=== PATIENT | female | born 1960 | race American Indian/Alaskan Native ===

== ENCOUNTER 2016-07-09 16:21 | Emergency (ER) | payer MEDICARE ==
--- NOTE | 2016-07-09 16:59 | Emergency Department Report ---
Chief Complaint: Nosebleed Stated Complaint: NOSE BLEEDS/CHILLS/LIGHTHEADED Time Seen by Provider: 07/09/16 16:54 - HPI History of Present Illness: 55-year-old -[place] female with a past medical history of hypertension comes in for having nosebleeds has been bleeding on and off for the past 8 days. Patient admits to dizziness and having a cough. She states she sees has chills at night as well as having back pain. - Exam Vital Signs: Vital Signs 07/09/16 16:37 Temperature 97.8 F Pulse Rate 94 H Respiratory 18 Rate Blood Pressure 123/80 O2 Sat by Pulse 100 Oximetry Physical Exam: She is alert and oriented 3 cardiovascular mildly tachycardic respiratory clear to auscultation bilaterally abdomen soft nontender nondistended bowel sounds appreciated. MSE screening note: Focused history and physical exam performed. Due to findings the following was ordered: CBC BMP urinalysis ordered patient be evaluated in the back. ED Disposition for MSE Condition: Stable
[2016-07-09 17:48] LABS: Basophils % (Auto) 0.6 % (0.0-1.8); Eosinophils % (Auto) 3.5 % (0.0-4.3); Hematocrit 35.8 % (30.3-42.9); Hemoglobin 11.9 gm/dl (10.1-14.3); Mean Corpuscular HGB Conc 33 % (30-34); Mean Corpuscular Hemoglobin 32 pg (28-32); Mean Corpuscular Volume 97 fl (79-97); Platelet Count 239 K/mm3 (140-440); Red Blood Count 3.68 M/mm3 (3.65-5.03); Red Cell Distribution Width 12.8 % (13.2-15.2); White Blood Count 5.2 K/mm3 (4.5-11.0)
[2016-07-09 17:56] LABS: Anion Gap 16 mmol/L; Blood Urea Nitrogen 9 mg/dL (7-17); Calcium 9.7 mg/dL (8.4-10.2); Carbon Dioxide 25 mmol/L (22-30); Chloride 98.6 mmol/L (98-107); Glucose 89 mg/dL (65-100); Potassium 4.2 mmol/L (3.6-5.0); Sodium 135 mmol/L (137-145)
[2016-07-09 19:26] LABS: Bacteria,Urine 1+ /HPF (Negative); Bilirubin,Urine NEG (Negative); Blood,Urine NEG (Negative); Ketones,Urine NEG (Negative); Leukocyte Esterase,Urine TR (Negative); Nitrite,Urine NEG (Negative); Protein,Urine <15 mg/dL mg/dL (Negative); Urobilinogen,Urine < 2.0 mg/dL (<2.0)
[2016-07-09 19:27] LABS: RBC,Urine < 1.0 /HPF (0.0-6.0)
[2016-07-10 00:19] VITALS: BP 120/82
--- NOTE | 2016-07-10 00:28 | Emergency Department Report ---
ED General Adult HPI - General Chief complaint: Nosebleed Stated complaint: NOSE BLEEDS/CHILLS/LIGHTHEADED Time Seen by Provider: 07/09/16 16:54 Source: patient, RN notes reviewed Mode of arrival: Ambulatory Limitations: No Limitations - History of Present Illness Initial comments: This is a 58-year-old female. She is previously unknown to me. She has a primary care doctor but can't remember their name. She is a past medical history of hypertension and chronic arthritic back pain. She presents to the ER with resolved nasal bleeding. Nasal bleeding has been going on and off for about a week. Typically bleeds in the right nostril. There is no trauma. No nasal picking. No cocaine use. Patient reports that the nasal bleeding is very distressing, and when happens she feels like her heart starts to be rapidly, and she starts to feel lightheaded. She has no chest pain, she has had no loss of consciousness. There is no leg pain. There is no leg swelling. No recent trips greater than 4 hours. No recent hospital admissions. There is no loss of consciousness, there is no ataxia. There is no chest pain. The patient reports an incidental mechanical fall last week, and landed on her back. There is no bladder or bowel retention or incontinence. There is no saddle anesthesia. -: Gradual Severity scale (0 -10): 8 Consistency: intermittent Improves with: none Worsens with: none Associated Symptoms: cough, loss of appetite - Related Data Home Medications Medication Instructions Recorded Confirmed Last Taken Atenolol [Tenormin] 50 mg PO DAILY 09/28/13 09/28/13 09/28/13 09:00 HYDROcodone/APAP 5-325 [[place] 1 each PO Q6HR PRN 09/28/13 09/28/13 Unknown 5/325 mg] Hydroxychloroquine [Plaquenil] 200 mg PO QDAY 09/28/13 09/28/13 Unknown Previous Rx's Medication Instructions Recorded Last Taken Type Ibuprofen [Motrin 800 MG tab] 800 mg PO Q8H #14 tablet 09/28/13 Unknown Rx Methocarbamol [Robaxin] 750 mg PO Q8H PRN #14 tablet 09/29/13 Unknown Rx oxyCODONE /ACETAMINOPHEN [Percocet 1 tab PO Q6HR PRN #10 tablet 09/29/13 Unknown Rx 5/325 mg] Fluticasone [Flonase] 1 spray NS QDAY #1 bottle 07/10/16 Unknown Rx Oxymetazoline 0.05% [Afrin] 1 spray NS BID #1 bottle 07/10/16 Unknown Rx Allergies Allergy/AdvReac Type Severity Reaction Status Date / Time No Known Allergies Allergy Unverified 09/28/13 20:26 ED Review of Systems ROS: Stated complaint: NOSE BLEEDS/CHILLS/LIGHTHEADED Other details as noted in HPI Constitutional: denies: fever Eyes: denies: vision change ENT: throat pain, epistaxis, congestion Respiratory: see HPI Cardiovascular: as per HPI Gastrointestinal: denies: vomiting Genitourinary: denies: dysuria Musculoskeletal: back pain, arthralgia Skin: as per HPI Neurological: headache Psychiatric: anxiety ED Past Medical Hx - Past Medical History Hx Hypertension: Yes - Surgical History Hx Appendectomy: Yes - Social History Smoking Status: Current Every Day Smoker Substance Use Type: None - Medications Home Medications: Home Medications Medication Instructions Recorded Confirmed Last Taken Type Atenolol [Tenormin] 50 mg PO DAILY 09/28/13 09/28/13 09/28/13 09:00 History HYDROcodone/APAP 5-325 [[place] 1 each PO Q6HR PRN 09/28/13 09/28/13 Unknown History 5/325 mg] Hydroxychloroquine [Plaquenil] 200 mg PO QDAY 09/28/13 09/28/13 Unknown History Ibuprofen [Motrin 800 MG tab] 800 mg PO Q8H #14 tablet 09/28/13 Unknown Rx Methocarbamol [Robaxin] 750 mg PO Q8H PRN #14 tablet 09/29/13 Unknown Rx oxyCODONE /ACETAMINOPHEN [Percocet 1 tab PO Q6HR PRN #10 tablet 09/29/13 Unknown Rx 5/325 mg] Fluticasone [Flonase] 1 spray NS QDAY #1 bottle 07/10/16 Unknown Rx Oxymetazoline 0.05% [Afrin] 1 spray NS BID #1 bottle 07/10/16 Unknown Rx ED Physical Exam - General Limitations: No Limitations General appearance: alert, in no apparent distress - Head Head exam: Present: atraumatic, normocephalic - Eye Eye exam: Present: normal appearance, PERRL, EOMI, other (social acuity intact to color perception, finger counting, rating at a close distance. No obvious visual field cuts deficits.). Absent: nystagmus - ENT ENT exam: Present: normal exam, normal orophraynx, mucous membranes moist, TM's normal bilaterally, normal external ear exam, other (no bleeding is noted in within the nostrils) - Neck Neck exam: Present: normal inspection, full ROM. Absent: tenderness, meningismus - Respiratory Respiratory exam: Present: normal lung sounds bilaterally. Absent: respiratory distress, wheezes, rales, rhonchi, stridor, decreased breath sounds - Cardiovascular Cardiovascular Exam: Present: regular rate, normal rhythm, normal heart sounds. Absent: bradycardia, tachycardia, irregular rhythm, systolic murmur, diastolic murmur, rubs, gallop - GI/Abdominal GI/Abdominal exam: Present: soft, normal bowel sounds. Absent: distended, tenderness, guarding, rebound, rigid, pulsatile mass - Extremities Exam Extremities exam: Present: normal inspection, full ROM, normal capillary refill. Absent: tenderness, pedal edema, joint swelling, calf tenderness - Back Exam Back exam: Present: normal inspection, full ROM, paraspinal tenderness. Absent : tenderness, CVA tenderness (R), CVA tenderness (L), muscle spasm, vertebral tenderness - Neurological Exam Neurological exam: Present: alert, oriented X3, normal gait (Extraocular movements intact. Tongue midline. No facial droop. Facial sensation intact to light touch in the V1, V2, V3 distribution bilaterally. 5 and 5 strength in 4 extremities.. Sensation is intact to light touch in 4 extremities.), other ( there is no past-pointing. Normal [id number]. Normal gait. Normal tandem gait). Absent: motor sensory deficit - Psychiatric Psychiatric exam: Present: normal affect, normal mood - Skin Skin exam: Present: warm, dry, intact, normal color. Absent: rash ED Course Vital Signs 07/09/16 07/10/16 16:37 00:18 Temperature 97.8 F 97.9 F Pulse Rate 94 H 88 Respiratory 18 18 Rate Blood Pressure 123/80 Blood Pressure 120/82 [Left] O2 Sat by Pulse 100 98 Oximetry - Reevaluation(s) Reevaluation #1: 07/10/16 00:52 Differential diagnosis: Viral syndrome, dehydration, intermittent epistaxis, bronchitis, pneumonia, mechanical back pain Assessment and plan: 55-year-old female with multiple complaints, none of which appear to be emergent or urgent. She has a GCS of 15, with an NIH score of 0, walks with a steady gait, no cerebellar signs. No active nasal bleeding at this time, no pulmonary embolus or DVT risk factors, she is low risk by well's criteria. Her EKG is morphologically unremarkable, laboratory studies are also unremarkable. I give the patient to tongue depressor bleeds taped together, and instructed her on how to care for her nasal bleed if it returned. The patient does report a history of nasal bleeding in the past which was treated at [facility]. She can follow-up with an outpatient primary care doctor and machine deicer element winder. She will be discharged at this time. ED Medical Decision Making - Lab Data Result diagrams: 07/09/16 17:12 07/09/16 17:12 Vital Signs 07/09/16 07/10/16 16:37 00:18 Temperature 97.8 F 97.9 F Pulse Rate 94 H 88 Respiratory 18 18 Rate Blood Pressure 123/80 Blood Pressure 120/82 [Left] O2 Sat by Pulse 100 98 Oximetry Lab Results 07/09/16 07/09/16 07/09/16 Range/Units 17:12 17:12 18:53 WBC 5.2 (4.5-11.0) K/mm3 RBC 3.68 (3.65-5.03) M/mm3 Hgb 11.9 (10.1-14.3) gm/dl Hct 35.8 (30.3-42.9) % MCV 97 (79-97) fl MCH 32 (28-32) pg MCHC 33 (30-34) % RDW 12.8 L (13.2-15.2) % Plt Count 239 (140-440) K/mm3 Lymph % (Auto) 37.0 H (13.4-35.0) % [place] % (Auto) 10.2 H (0.0-7.3) % Eos % (Auto) 3.5 (0.0-4.3) % Baso % (Auto) 0.6 (0.0-1.8) % Lymph # 1.9 (1.2-5.4) K/mm3 Garvin # 0.5 (0.0-0.8) K/mm3 Eos # 0.2 (0.0-0.4) K/mm3 Baso # 0.0 (0.0-0.1) K/mm3 Seg Neutrophils % 48.7 (40.0-70.0) % Seg Neutrophils # 2.5 (1.8-7.7) K/mm3 Sodium 135 L (137-145) mmol/L Potassium 4.2 (3.6-5.0) mmol/L Chloride 98.6 (98-107) mmol/L Carbon Dioxide 25 (22-30) mmol/L Anion Gap 16 mmol/L BUN 9 (7-17) mg/dL Creatinine 0.6 L (0.7-1.2) mg/dL Estimated GFR > 60 ml/min BUN/Creatinine Ratio 15.00 % Glucose 89 (65-100) mg/dL Calcium 9.7 (8.4-10.2) mg/dL Urine Color Yellow (Yellow) Urine Turbidity Clear (Clear) Urine pH 6.0 (5.0-7.0) Ur Specific [place] 1.005 (1.003-1.030) Urine Protein <15 mg/dl (Negative) mg/dL Urine Glucose (UA) Neg (Negative) mg/dL Urine Ketones Neg (Negative) mg/dL Urine Blood Neg (Negative) Urine Nitrite Neg (Negative) Urine Bilirubin Neg (Negative) Urine Urobilinogen < 2.0 (<2.0) mg/dL Ur Leukocyte Esterase Tr (Negative) Urine WBC (Auto) 1.0 (0.0-6.0) /HPF Urine RBC (Auto) < 1.0 (0.0-6.0) /HPF U Epithel Cells (Auto) 1.0 (0-13.0) /HPF Urine Bacteria (Auto) 1+ (Negative) /HPF - EKG Data -: EKG Interpreted by Me EKG shows normal: sinus rhythm, axis, QRS complexes, ST-T waves - EKG Data When compared to previous EKG there are: previous EKG unavailable 07/10/16 00:54 Normal sinus, 86 bpm, normal intervals, normal axis, unremarkable EKG, not morphologically consistent with STEMI. - Radiology Data Radiology results: image reviewed interpreted by me: X-ray of the chest is negative for acute disease Critical care attestation.: If time is entered above; I have spent that time in minutes in the direct care of this critically ill patient, excluding procedure time. ED Disposition Clinical Impression: History of epistaxis Disposition: DISCHARGED TO HOME OR SELFCARE Is pt being admited?: No Does the pt Need Aspirin: No Condition: Stable Instructions: Epistaxis (ED) Additional Instructions: Take the medications as directed. Follow up with the primary care doctor within the next week. Follow up with an machine deicer element winder within the next [address] Ochoa is a local primary care doctor. Dr. Arreola is a otolaryngology specialist. Nasal bleeding is likely to recur. If and when nasal bleeding recurs, spray 1-2 sprays of Afrin in the affected nostril, then applied the tongue depressor device, then apply direct pressure over the tongue depressor device for 15-20 minutes. If this does not resolve bleeding, return to the emergency room right away. Afrin can be used once every 12 hours for only 3 days. Do not use the medication any more frequently than that. The Flonase medication may be used indefinitely. Prescriptions: Fluticasone [Flonase] 1 spray NS QDAY #1 bottle Oxymetazoline 0.05% [Afrin] 1 spray NS BID #1 bottle Referrals: PRIMARY CARE, [Primary Care Provider] - 3-5 Days MARJORIE ARREOLA MD [Staff Physician] - 3-5 Days LUPE OCHOA MD [Staff Physician] - 3-5 Days
--- NOTE | 2016-07-10 08:51 | XRay Report ---
ROUTINE CHEST, TWO VIEWS: PA and lateral views demonstrate the heart and mediastinal contour to be of normal size and shape. The lungs are clear and fully expanded and the soft tissues and bony structures are normal. IMPRESSION: Normal study.
== END 2016-07-10 01:30 | disposition home or self-care (01) ==
LOC: ED 16:21
DX: R04.0 Epistaxis (principal); I10 Essential (primary) hypertension; F17.200 Nicotine dependence, unspecified, uncomplicated
CPT/HCPCS: 36415; 71020; 80048; 81001; 85025; 93005; 93010; 99284

== ENCOUNTER 2017-05-28 09:19 | Outpatient (CLI) | payer MEDICARE ==
--- NOTE | 2017-05-28 10:51 | XRay Report ---
LEFT KNEE, 3 views: History: Pain in left knee. The bony architecture is intact without evidence of fracture or dislocation. A moderate joint effusion is suspected on the lateral image. IMPRESSION: Joint effusion. No bony abnormality is appreciated. If further evaluation is needed, MRI left knee without contrast is recommended.
== END 2017-05-28 09:20 | disposition home or self-care (01) ==
LOC: XRAY 09:19
PROVIDERS: ATTEND Anesthesiology
DX: M25.462 Effusion, left knee (principal)

== ENCOUNTER 2018-08-02 13:40 | Emergency (ER) | payer MEDICARE ==
[2018-08-02 13:45] VITALS: BP 119/76
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
--- NOTE | 2018-08-02 14:04 | XRay Report ---
LUMBOSACRAL SPINE, 3 VIEWS: History: Back pain Findings: The vertebral bodies, disk spaces and posterior elements are intact. No compression deformity or malalignment. Mild diffuse facet arthropathy is identified. The SI joints are symmetric and unremarkable. Impression: Mild lumbar spondylosis. No evidence for acute injury to the lumbar spine.
--- NOTE | 2018-08-02 14:05 | XRay Report ---
CERVICAL SPINE, 3 views: History: Neck pain. Findings: The vertebral bodies, posterior elements and prevertebral soft tissues are unremarkable. The dens is intact. Moderate degenerative disc disease is identified at C4-5, C5-6 and C6-7. No acute fracture or malalignment is identified. Impression: Cervical spondylosis. No evidence for acute injury to the cervical spine.
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
== END 2018-08-02 18:30 | disposition home or self-care (01) ==
LOC: ED 13:40
DX: S16.1XXA Strain of muscle, fascia and tendon at neck level, initial encounter (principal); M47.22 Other spondylosis with radiculopathy, cervical region; M47.27 Other spondylosis with radiculopathy, lumbosacral region; I10 Essential (primary) hypertension; Z90.49 Acquired absence of other specified parts of digestive tract; V89.2XXA Person injured in unspecified motor-vehicle accident, traffic, initial encounter; Y93.89 Activity, other specified; Y92.488 Other paved roadways as the place of occurrence of the external cause; Y99.8 Other external cause status
CPT/HCPCS: 72040; 72100; 99283

== ENCOUNTER 2019-04-28 17:49 | Emergency (ER) | payer MEDICARE ==
--- NOTE | 2019-04-28 21:45 | Event Note ---
ED Screening Note Date of service: 04/28/19 Time: 21:03 ED Screening Note: 58 y of presents with headache radiating to right side neck,shoulder and handpain 2 days ago and then a rash appeared the day after that to This initial assessment/diagnostic orders/clinical plan/treatment(s) is/are cabrera bject to change based on patients health status, clinical progression and re- assessment by fellow clinical providers in the ED. Further treatment and workup at subsequent clinical providers discretion. Patient/guardian urged not to elope from the ED as their condition may be serious if not clinically assessed and managed. Initial orders include:
[2019-04-28] MEDS ORDERED: ACETAMINOPHEN W/CODEINE 300-30 MG TAB PO ONE (23:21)
--- NOTE | 2019-04-28 23:23 | Emergency Department Report ---
ED Rash HPI - HPI Chief Complaint: Headache Stated Complaint: BACK PAIN/HEADACHE Time Seen by Provider: 04/28/19 21:59 Duration: 3 Days Location: Neck Rash Symptoms: Yes Blistering, No Itching, No Facial Swelling, No Tongue/Oral Swelling, No Breathing Difficulties, No Choking Sensation, No Wheezing/Dyspnea, No Fever, No Lightheaded, No Malaise Severity: moderate ED Review of Systems ROS: Stated complaint: BACK PAIN/HEADACHE Other details as noted in HPI Comment: All other systems reviewed and negative ED Past Medical Hx - Past Medical History Previous Medical History?: Yes Hx Hypertension: Yes Additional medical history: Lupus - Surgical History Past Surgical History?: Yes Hx Appendectomy: Yes - Social History Smoking Status: Current Every Day Smoker Substance Use Type: None - Medications Home Medications: Home Medications Medication Instructions Recorded Confirmed Last Taken Type HYDROcodone/APAP 5-325 [[place] 1 each PO Q6HR PRN 09/28/13 09/28/13 Unknown History 5/325 mg] Hydroxychloroquine [Plaquenil] 200 mg PO QDAY 09/28/13 09/28/13 Unknown History Ibuprofen [Motrin 800 MG tab] 800 mg PO Q8H #14 tablet 09/28/13 Unknown Rx atenoloL [Tenormin] 50 mg PO DAILY 09/28/13 09/28/13 09/28/13 09:00 History methOCARBAMOL [Robaxin] 750 mg PO Q8H PRN #14 tablet 09/29/13 Unknown Rx oxyCODONE /ACETAMINOPHEN [Percocet 1 tab PO Q6HR PRN #10 tablet 09/29/13 Unknown Rx 5/325 mg] Fluticasone [Flonase] 1 spray NS QDAY #1 bottle 07/10/16 Unknown Rx Oxymetazoline 0.05% [Afrin] 1 spray NS BID #1 bottle 07/10/16 Unknown Rx Ibuprofen [Motrin 800 MG tab] 800 mg PO Q8HR PRN #20 tablet 08/02/18 Unknown Rx methOCARBAMOL [Robaxin TAB] 750 mg PO TID PRN #15 tablet 08/02/18 Unknown Rx Acyclovir [Zovirax Tab] 800 mg PO 5XD #25 tablet 04/28/19 Unknown Rx Ketorolac [Toradol] 10 mg PO Q6H PRN #14 tablet 04/28/19 Unknown Rx Rash Exam - Exam General: Vital signs noted. No distress. Alert and acting appropriately. HEENT: No Periorbital Edema, No Conjuctival Injection, No Chemosis, No Perioral Edema, No Tongue Edema, No Uvular Edema, No Compromised Airway, No Drooling Lungs: Yes Good Air Exchange (Normal Breath Sounds), No Wheezes, No Ronchi, No S tridor, No Cough, No Labored Respirations, No Retractions, No Use of Accessory Muscles, No Other Abnormal Lung Sounds Heart: Yes Regular, No Murmur Front/Back of Body, Lg (Color): 1 - Rash along this dermatome Skin: Yes Tenderness, Yes Other (vesicular rash and had multiple stages along 1 dermatome tender to the touch with minimal surrounding erythema), No Erythema, No Edema Other: Positive: Abdomen Normal, Neurologic Normal, Musculoskeletal Normal ED Course Vital Signs 04/28/19 21:03 Temperature 98 F Pulse Rate 74 Respiratory 18 Rate Blood Pressure 119/78 O2 Sat by Pulse 98 Oximetry ED Medical Decision Making - Medical Decision Making 58 y/o female patient with a vesicular rash on an erythematous base in a dermatomal pattern consistent with herpes zoster. Not immunocompromised and without signs of systemic or disseminated infection. Low suspicion for alternate etiology of rash such as SJS, drug rash, viral exanthem, or other emergent cause of rash. Plan: acyclovir 800mg 5x/day for a week, gabapentin (deferred for PCP) and other pain control, reassessment, likely discharge Critical care attestation.: If time is entered above; I have spent that time in minutes in the direct care of this critically ill patient, excluding procedure time. ED Disposition Clinical Impression: Shingles rash Disposition: -01 TO HOME OR SELFCARE Is pt being admited?: No Does the pt Need Aspirin: No Condition: Stable Instructions: Herpes Zoster (ED) Prescriptions: Ketorolac [Toradol] 10 mg PO Q6H PRN #14 tablet PRN Reason: Pain Acyclovir [Zovirax Tab] 800 mg PO 5XD #25 tablet Referrals: PRIMARY CARE, [Primary Care Provider] - 3-5 Days GUSTAVO REHMAN MD [Staff Physician] - 3-5 Days
[2019-04-28 23:36] VITALS: BP 122/83
== END 2019-04-28 23:36 | disposition home or self-care (01) ==
LOC: ED 17:49
DX: B02.9 Zoster without complications (principal); I10 Essential (primary) hypertension; F17.200 Nicotine dependence, unspecified, uncomplicated
CPT/HCPCS: 99282